=== PATIENT | female | born 1985 | race Caucasian/White ===

== ENCOUNTER 2020-05-07 04:32 | Emergency (ER) | payer SELFPAY ==
[2020-05-07 04:35] VITALS: BP 120/97; PULSE 117; RESP 16; TEMP 36.8; O2SAT 96
--- NOTE | 2020-05-07 04:39 | ED.GENADUL_ITS ---
Discharge Plan Disposition Patient Disposition: HOME Condition: Good Discharge Details Chief Complaint: RashLesion Clinical Impression: Cellulitis of hand, right Primary Care Provider: None,None ED Provider: Armando Paz Home Meds and New Rx's Prescriptions: New clindamycin HCl 150 mg capsule 450 mg PO TID PRN7 Days Qty: 30 RF: 0 Discharge Instructions Instructions: Cellulitis (ED) Additional Instructions: You have a notable infection of your hand. Please take the antibiotic as directed. Make sure to take it with a yogurt that has live cultures in it to prevent diarrhea. If you notice any spreading of the redness, fever, chills, worsening of the pain please return immediately for reassessment. Please come back on Wednesday to have your hand checked again to make sure it is improving or follow-up closely with your primary care provider in the same time schedule for reevaluation. If you notice any worsening of your symptoms, or any new symptoms such as vomiting, diarrhea, fever, chills, shortness of breath, chest pain, numbness, weakness, or fainting , please return immediately to the emergency department for reevaluation. Please follow up with your primary care provider as soon as possible for reassessment and reevaluation. As always, it was a pleasure participating in your medical care today. Medical Decision Making 34-year-old female who is right-hand dominant whose tetanus was updated within the past 5 years presents today for evaluation of cellulitis on her right hand. Patient states that she does have a history of IV drug use, but is not shot up for 2 years. She does snort still though and smoke. She states that over the last 2 to 3 days she is noticed initially 2 small bumps on her right hand over the dorsal aspect, and then over the last 24 hours there is been notable redness, interruption and then subsequent drainage. She admits to swelling in the right hand extending up her wrist, but denies any fever or chills. She admits to mild pressure in her hand but denies any pain with flexion or extension of the fingers or thumb. She denies any other systemic symptoms. No other complaints at this time. The patient's right hand demonstrates notable swelling, redness traveling up the distal aspect of the forearm. Single area of fluctuance on the dorsal aspect of the hand, active drainage. No clinical evidence of flexor or extensor tenosynovitis. No systemic symptoms of fever or chill. Incision and drainage was performed, notable amount of pus was exuded. Patient tolerated procedure well and actually felt a notable improvement after this. Small packing was placed. She was given her first dose of clindamycin here, she does not have a PCP and we will set her up with 1. I do recommend return to the ED in 2 days for wound recheck. Had a long discussion regarding red flags for which to return and would be evidence of worsening infection. I have extensively reviewed the treatment plan and discharge instructions with the patient. I have addressed all patient concerns at this time. The patient was made aware of what symptoms to monitor for that would warrant a return to the emergency department. Discussed the plan with the patient, they demonstrate verbal understanding and agreement with our assessment and plan at this time. HPI General Date/Time Provider Initiated Documentation: 05/07/20 04:34 . HPI Narrative: 34-year-old female who is right-hand dominant whose tetanus was updated within the past 5 years presents today for evaluation of cellulitis on her right hand. Patient states that she does have a history of IV drug use, but is not shot up for 2 years. She does snort still though and smoke. She states that over the last 2 to 3 days she is noticed initially 2 small bumps on her right hand over the dorsal aspect, and then over the last 24 hours there is been notable redness, interruption and then subsequent drainage. She admits to swelling in the right hand extending up her wrist, but denies any fever or chills. She admits to mild pressure in her hand but denies any pain with flexion or extension of the fingers or thumb. She denies any other systemic symptoms. No other complaints at this time. Related Data Home Medications Medication Instructions Recorded Confirmed clindamycin HCl 450 mg PO TID PRN 7 Days #30 cap 05/07/20 Previous Rx's Medication Instructions Recorded clindamycin HCl 450 mg PO TID PRN 7 Days #30 cap 05/07/20 Allergies Allergy/AdvReac Type Severity Reaction Status Date / Time No Known Allergies Allergy Unverified 05/07/20 04:43 Review of Systems All systems reviewed & are unremarkable except as noted in HPI and below [facility] Medical History Attention deficit disorder Depression stopped Trazadone with Rx for Wellbutrin given Opioid dependence hx of polysubstance use. 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 3.ENT: Atraumatic external nose and ears. Moist MM. Neck: Symmetric, trachea midline, No thyromegaly. 4.CVS: +S1/S2, No murmurs or gallops. Peripheral pulses 2+ and equal in all extremities. Brisk capillary refill in all extremities. 5.RESP: Unlabored respiratory effort. Clear to auscultation bilaterally. No wheezes rales or rhonchi 6.GI: Soft, Nontender/Nondistended, No hepatosplenomegaly. No guarding or rebound. 7.MSK: Normocephalic/Atraumatic, Extremities w/o deformity or ttp No cyanosis or clubbing, Normal movement of all extremities 8.Skin: Warm, Dry. Patient's right hand is notably swollen, mild erythema, extending up the right forearm roughly 3 to 4 inches. On the dorsal aspect of the hand there is a single notable lesion with a diameter of about 1.5 to 2 cm it is white, and actively draining, fluctuant with purulent material. No axillary lymphadenopathy is present. No pain with passive or active flexion or extension of the fingers or thumb. No clinical evidence of flexor or extensor tenosynovitis. 9.Neuro: picker tender helper II-XII grossly intact. Sensation grossly intact, no focal neurologic deficits. 10.Psych: (AAO) x3. Appropriate mood and affect Procedures Abscess I/D Site: Hand Side (if applicable): Right Local Anesthetic: Lidocaine 1% and With Epi Amount of anesthesia used (mL): 10 Technique: Incised with #11 Blade Amount of fluid expressed (mL): 7 Irrigation: No Packing used?: Plain Complications: Other (Repeat exam showed no neurovascular compromise or change.)
--- NOTE | 2020-05-07 04:43 | NUR.NOTE ---
Nursing Note:referal to [facility] pcp and follow up given to cm
[2020-05-07] MEDS: Clindamycin 150 MG CAP, 12 CAPS/BTL 450 MG PO (05:04)
[2020-05-07] MEDS: Lidocaine/Epinephri/Tetracaine Topical Gel 3 ML (05:04)
--- NOTE | 2020-05-07 05:05 | NUR.NOTE ---
Nursing Note: after provider drained abscess and inserted packing wound was covered in gauze and wrapped with cling.
== END 2020-05-07 05:05 | disposition home or self-care (01) ==
LOC: ER 04:41
PROVIDERS: Emergency Provider Student in an Organized Health Care Education/Training Program
DX: L03.113 Cellulitis of right upper limb (principal); B95.4 Other streptococcus as the cause of diseases classified elsewhere; F11.20 Opioid dependence, uncomplicated
CPT/HCPCS: 10061; 87077; 87070